=== PATIENT | male | born 1935 | race Caucasian/White ===

== ENCOUNTER 2016-12-21 18:48 | Inpatient (IN) ==
[2016-12-21] MEDS ORDERED: Aspirin 81 MG TAB.CHEW ONE (18:59)
[2016-12-21] MEDS ORDERED: *HR* Ticagrelor 90 MG TABLET ONE (18:59)
[2016-12-21] MEDS ORDERED: *HR* Heparin 5,000 UNIT/ML VIAL ONE (19:00)
[2016-12-21] MEDS ORDERED: *HR* Ticagrelor 90 MG TABLET PO ONE (19:01)
[2016-12-21] MEDS ORDERED: *HR* Heparin 5,000 UNIT/ML VIAL IVP ONE (19:01)
[2016-12-21] MEDS ORDERED: Aspirin 81 MG TAB.CHEW PO ONE (19:03)
--- NOTE | 2016-12-21 19:08 | Emergency Department Note ---
Disposition Clinical Impression: Epigastric discomfort, Chest discomfort STEMI (ST elevation myocardial infarction) Qualifiers: Involved coronary artery: other coronary artery Qualified Code(s): I21.29 - ST elevation (STEMI) myocardial infarction involving other sites Disposition: Admitted As Inpatient Condition: Fair General Adult HPI - General Chief complaint: ED Chest Pain Stated complaint: Chest pain Time Seen by Provider: 12/21/16 19:00 Source: patient, family Mode of arrival: ambulatory Limitations: no limitations Nursing Notes Reviewed: Yes Vital Signs Reviewed: Yes - History of Present Illness HPI Narrative: 81-year-old male who reports he has had approximately 3 days of epigastric and lower substernal chest discomfort. He describes it as a pressure. He has a past medical history and significant for CABG approximately 5 years ago and a left heart catheter with stent placement approximately 3 years ago. He takes aspirin, metoprolol, and metformin. Past medical history of diabetes, hypertension, hyperlipidemia, coronary disease, and bovine valve replacement. He is not on other anticoagulants. He denies any fever. He has had some nausea but no vomiting. Denies dyspnea. Radiation: non-radiation Pain Severity: moderate Pain Scale: 5 Consistency: constant Improves with: nothing Worsens with: nothing Associated symptoms: Reports: denies other symptoms - Related Data Allergies Allergy/AdvReac Type Severity Reaction Status Date / Time No Known Allergies Allergy Verified 12/21/16 18:53 All systems ED: reviewed and negative except as stated. Constitutional: Denies: fever Eyes: Denies: vision change ENT ED: Denies: throat pain Cardiovascular: Reports: chest pain Respiratory: Denies: cough Gastrointestinal: Reports: abdominal pain (epgastric) Musculoskeletal: Denies: back pain Integumentary: Denies: rash Neurological: Denies: headache Past Medical History - Past Medical History Medical history: Reports: coronary artery disease, diabetes, GERD, hyperlipidemia, hypertension, myocardial infarction - Social History Smoking Status: Former smoker Alcohol use: Reports: none Drug use: Reports: none Physical Exam - General Limitations: no limitations General appearance: alert, in no apparent distress - Head Head exam: atraumatic - Eye Eye exam: Present: normal appearance, PERRL - ENT ENT exam: normal exam, normal oropharynx - Neck Neck exam: Present: normal inspection - Chest Chest inspection: Present: normal inspection - Respiratory Respiratory exam: Present: normal lung sounds bilaterally. Absent: respiratory distress - Cardiovascular Cardiovascular exam: Present: regular rate, normal rhythm - Abdominal Exam Abdominal exam: Present: soft, Non-Tender - Extremities Exam Extremities exam: Present: normal inspection - Back Exam Back exam: Present: normal inspection - Neurological Exam Neurological exam: Present: alert, oriented X3 - Psychiatric Psychiatric exam: Present: normal affect, normal mood - Skin Skin exam: Present: warm, dry Course Course Narrative: On initial EKG STEMI alert was called due to ST elevation in V1 through V5. No T-wave inversions or inferior involvement. I spoke with Dr. Mittal the interventionalists who recommended I give a heparin bolus and Brilinta. I have also given aspirin. His blood pressure was 200 systolic so I did go ahead and order sublingual nitroglycerin. His discomfort is decreasing. Vital signs are otherwise stable. Vital Signs Temperature 98.6 F 12/21/16 18:54 Pulse Rate 95 12/21/16 18:54 Respiratory Rate 18 12/21/16 18:54 Blood Pressure 183/89 12/21/16 18:54 O2 Sat by Pulse Oximetry 97 12/21/16 18:54 Temperature 98.6 F 12/21/16 18:54 Pulse Rate 60 12/21/16 19:27 Respiratory Rate 16 12/21/16 19:34 Blood Pressure 149/76 12/21/16 19:34 O2 Sat by Pulse Oximetry 97 12/21/16 19:27 Oxygen Delivery Oxygen Delivery Nasal Cannula Medical Decision Making - Medical Records Medical records reviewed: Yes I reviewed the patient's medical records. - Lab Data Lab results reviewed: Yes I reviewed the patient's lab results. Result diagrams: 12/21/16 19:00 12/21/16 19:00 Lab Results 12/21/16 12/21/16 12/21/16 Range/Units 19:00 19:00 19:00 WBC 7.9 (4.3-11.1) K/mcL RBC 4.87 (4.19-5.50) M/mcL Hgb 14.1 (12.9-16.9) g/dL Hct 42.5 (37.5-50.1) % MCV 87.3 (83.0-100.0) fL MCH 29.0 (28.0-33.3) pg MCHC 33.2 (31.6-35.5) g/dL RDW 13.4 (11.5-14.5) % Plt Count 207 (140-400) K/mcL MPV 10.4 (9.4-12.4) fL Immature Gran % 0.4 (0-4) % Seg Neutrophils % 57.9 % Lymphocytes % 26.2 % Monocytes % 10.3 % Eosinophils % 4.4 % Basophils % 0.8 % Neutrophils # 4.6 (1.6-8.9) K/mcL Lymphocytes # 2.1 (0.6-4.6) K/mcL Monocytes # 0.8 (0.0-1.3) K/mcL Eosinophils # 0.4 (0.0-0.6) K/mcL Basophils # 0.1 (0.0-0.2) K/mcL PT 11.9 (9.4-12.1) Seconds INR 1.1 APTT 27.1 (26.0-36.0) Seconds Sodium 142 (136-145) mEq/L Potassium 4.7 H (3.5-4.5) mEq/L Chloride 104 (98-109) mEq/L Carbon Dioxide 27 (19-29) mEq/L BUN 16 (8-26) mg/dL Creatinine 1.47 H (0.72-1.25) mg/dL Est GFR ( Amer) 56 L (> 60) Est GFR (Non-Af Amer) 46 L (> 60) BUN/Creatinine Ratio 11 (6-26) Glucose 158 H (70-99) mg/dL Calculated Osmolality 298 (280-300) Calcium 9.1 (8.6-10.8) mg/dL Magnesium 1.5 L (1.6-2.6) mg/dL Troponin I (0-0.03) ng/mL 12/21/16 Range/Units 19:00 WBC (4.3-11.1) K/mcL RBC (4.19-5.50) M/mcL Hgb (12.9-16.9) g/dL Hct (37.5-50.1) % MCV (83.0-100.0) fL MCH (28.0-33.3) pg MCHC (31.6-35.5) g/dL RDW (11.5-14.5) % Plt Count (140-400) K/mcL MPV (9.4-12.4) fL Immature Gran % (0-4) % Seg Neutrophils % % Lymphocytes % % Monocytes % % Eosinophils % % Basophils % % Neutrophils # (1.6-8.9) K/mcL Lymphocytes # (0.6-4.6) K/mcL Monocytes # (0.0-1.3) K/mcL Eosinophils # (0.0-0.6) K/mcL Basophils # (0.0-0.2) K/mcL PT (9.4-12.1) Seconds INR APTT (26.0-36.0) Seconds Sodium (136-145) mEq/L Potassium (3.5-4.5) mEq/L Chloride (98-109) mEq/L Carbon Dioxide (19-29) mEq/L BUN (8-26) mg/dL Creatinine (0.72-1.25) mg/dL Est GFR ( Amer) (> 60) Est GFR (Non-Af Amer) (> 60) BUN/Creatinine Ratio (6-26) Glucose (70-99) mg/dL Calculated Osmolality (280-300) Calcium (8.6-10.8) mg/dL Magnesium (1.6-2.6) mg/dL Troponin I 1.29 H* (0-0.03) ng/mL - Radiology Data Radiology results reviewed: Yes I reviewed the patient's radiology results. - EKG Data EKG #1 EKG attestation: Yes I reviewed and interpreted this EKG. EKG shows normal: sinus rhythm Rate: normal Rhythm: NSR [place]/QRS: normal ST segment elevation in: v1, v2, v3, v4, v5 Interpretation: acute FL Critical Care Time Critical Care Time: Yes Total Critical Care Time: 35 Attestation: Critical care performed: Time is exclusive of separately billable procedures. Time includes: direct patient care, patient reassessment, coordination of patient care, interpretation of data (laboratory data, radiology data, and respiratory data), review of patient's medical records, medical consultation and documentation of patient care. Procedures included in critical care time: Procedures excluded from critical care time: Attestation Statement - Attestation Attestation: IRu MD, personally performed a history and physical exam of the patient and discussed their management with the resident. I reviewed the resident's note and agree with the documented findings, medical decision making , and plan of care. 81-year-old male presents to the emergency department complaining of some lower substernal and epigastric area pain started 2 days prior to arrival. Some mild shortness of breath but patient states he is short of breath all the time. Some mild nausea but no vomiting. No diaphoresis. On examination patient is a well-developed well-nourished well-appearing elderly male in no acute distress. He is alert and oriented 3. There is no cyanosis or diaphoresis. Breath sounds clear and equal bilaterally. Heart regular rate and rhythm. Abdomen soft and nontender with normal bowel sounds. No pedal edema. EKG shows a STEMI with acute ST elevation in V2 V3 and V4. STEMI alert was called. Dr. Platt discussed with the tagman, Dr. Mittal, and patient is being taken from the emergency department to the [employer] [facility] for interventional cardiac catheter. He received aspirin, Brilenta, and heparin in the emergency department.
[2016-12-21 19:11] LABS: Hematocrit 42.5 % (37.5-50.1); Hemoglobin 14.1 g/dL (12.9-16.9); Immature Granulocytes % 0.4 % (0-4); Lymphocytes % 26.2 %; Mean Corpuscular HGB Conc 33.2 g/dL (31.6-35.5); Mean Corpuscular Volume 87.3 fL (83.0-100.0); Mean Platelet Volume 10.4 fL (9.4-12.4); Monocytes % 10.3 %; Platelet Count 207 K/mcL (140-400); Red Blood Count 4.87 M/mcL (4.19-5.50); Red Cell Distribution Width 13.4 % (11.5-14.5); Segmented Neutrophils % 57.9 %
[2016-12-21] MEDS: Nitroglycerin 0.4 MG TAB.SUBL SL PRN ×2 (19:11→21:56)
[2016-12-21 19:12] LABS: Basophils # 0.1 K/mcL (0.0-0.2); Basophils % 0.8 %; Eosinophils # 0.4 K/mcL (0.0-0.6); Eosinophils % 4.4 %; Lymphocytes # 2.1 K/mcL (0.6-4.6); Monocytes # 0.8 K/mcL (0.0-1.3); Neutrophils # 4.6 K/mcL (1.6-8.9)
[2016-12-21 19:19] LABS: INR 1.1; Prothrombin Time 11.9 Seconds (9.4-12.1)
[2016-12-21] MEDS ORDERED: *HR* Heparin 10,000 UNIT/10 ML VIAL ONE (19:20)
[2016-12-21] MEDS ORDERED: 0.9 % Sodium Chloride 1,000 ML ONE ×2 (19:20→19:35)
[2016-12-21] MEDS ORDERED: Heparin 1,000 UNITS/500 mL NS 500 ML ONE (19:20)
[2016-12-21] MEDS ORDERED: Nitroglycerin 1,000 MCG/10 ML VIAL IV ONE (19:21)
[2016-12-21 19:22] LABS: Activated Partial Thrombo Time 27.1 Seconds (26.0-36.0)
[2016-12-21 19:24] LABS: Calcium 9.1 mg/dL (8.6-10.8); Magnesium 1.5 mg/dL (1.6-2.6); Potassium 4.7 mEq/L (3.5-4.5)
[2016-12-21] MEDS ORDERED: *HR* Midazolam HCl 5 MG/5 ML VIAL IVP ONE (19:34)
[2016-12-21] MEDS ORDERED: *HR* FentaNYL (PF) 250 MCG/5 ML VIAL ONE (19:35)
[2016-12-21] MEDS ORDERED: Nitroglycerin Spray 4.9 GM BOTTLE ONE (19:39)
[2016-12-21] MEDS ORDERED: Nitroglycerin 25 MG/250 ML INFUS..BTL IVC ONE (19:39)
[2016-12-21] MEDS ORDERED: *HR* Adenosine 6 MG/2 ML VIAL IVP ONE (20:12)
[2016-12-21] MEDS ORDERED: Ondansetron 4 MG/2 ML VIAL IVP PRN (20:20)
[2016-12-21] MEDS ORDERED: 0.9 % Sodium Chloride 1,000 ML IVC SCH (20:30)
--- NOTE | 2016-12-21 20:32 | Invasive Diagnostic Lab Proc ---
Name: Sam Handy Date of Study: 12/21/2016 Date: 1935 Ht: 70.0in Medical Record#: [id number] Age: 81 Wt: 190.70lb Gender: Male BSA: 2.05 Order #: [id number] BMI: 27.36 Physicians Procedure Physician: Jen Mittal MD, FACC Referring MD: Christopher Bradley DO Referring MD: Staff Name Position Time In Page Keith RT (R) Scrub 07:41 PM Michele Guzman RN Patient Financial Coordinator 07:41 PM Linda North RN Monitor 07:41 PM Indications Indication STEMI Procedures Performed Procedure L HRT ARTERY/VENTRICLE ANGIO PRQ CARD REVASC WA 1 VSL Pre-Procedure Checklist Informed consent is complete signed and on chart. H\\T\\P is on chart. ID band is on and ID verified with patient. Pt not NPO for procedure and MD aware. The procedure was described for the patient and questions were answered. Blood Pressure: 176/82 ECG is on chart. Rhythm: Sinus Bradycardia Plan of Care Patient will tolerate the procedure without complications. Adequate level of comfort will be maintained. Hemodynamics will remain stable Patient will recover from procedure without complications. Respiratory function will be maintained. Cardiac rhythm will remain stable. Patient temperature will be maintained. Patient and/or family have verbalized understanding of the procedure. Patient Education Intravenous Access Time IV Size Location DC'd Fluid/Drip Rate Units RN 07:31 PM 18g 1 1/4" Patent On Arrival Rt Antecubital Michele Guzman RN 07:32 PM 18g 1 1/4" Patent On Arrival Lt Michele Banuelos RN Allergies No Known Allergies Vital Signs Time BP (mmHg) HR (bpm) O2 Sat. RR (bpm) LOC 07:31 PM 183 / 89 95 97 % 16 5 = Fully awake and oriented or at pre-proc level 07:42 PM / % 5 = Fully awake and oriented or at pre-proc level 07:43 PM / % 5 = Fully awake and oriented or at pre-proc level 07:47 PM / % 5 = Fully awake and oriented or at pre-proc level 07:52 PM / % 5 = Fully awake and oriented or at pre-proc level 07:40 PM 176 / 82 66 100 % 30 07:44 PM 138 / 70 63 98 % 14 07:52 PM 146 / 82 68 98 % 15 07:57 PM 142 / 67 62 98 % 19 08:01 PM 151 / 76 62 99 % 22 08:07 PM 175 / 86 69 100 % 17 Procedural Medications Time Medication Dose Units Method Given By 07:40 PM Oxygen 2 L/min nasal cannula Michele Guzman RN 07:40 PM Nitroglycerin 0.4 mcg Sublingual Michele Guzman RN 07:41 PM Versed 1 mg Intravenous Michele Guzman RN 07:41 PM Fentanyl 25 mcg Intravenous Michele Guzman RN 07:42 PM Lidocaine 2% 15 ml Subcutaneous Jen Mittal MD, FAC 07:54 PM Nitroglycerin 200 mcg Intracoronary Jen Mittal MD, FAC 07:54 PM Nitroglycerin 200 mcg Intracoronary Jen Mittal MD, FAC 07:54 PM Heparin 2000 units flush bowl 07:58 PM Adenosine 360 mcg Intracoronary Jen Mittal MD, FAC 08:04 PM Reopro 10.9 ml Intravenous Michele Guzman RN ASA Classification: Emergent Procedure: ASA score is assumed Jayjay Score Preprocedure Postprocedure Activity 2- Moves 4 extremities sustained head lift Activity 2- Moves 4 extremities sustained head lift Circulation 2- SBP +/= 20 points of pre-anesthetic level Circulation 2- SBP +/= 20 points of pre-anesthetic level Consciousness 2- Awake and alert oriented x 3 Consciousness 2- Awake and alert oriented x 3 O2 Saturation 2- Able to maintain O2 satruation of 92% on room air O2 Saturation 2- Able to maintain O2 satruation of 92% on room air Respiratory 2- Able to deep breathe and cough well Respiratory 2- Able to deep breathe and cough well Total Score 10 Total Score 10 Contrast Agent: Isovue Diagnostic Contrast: 149 ml Total Contrast: 149 ml Fluoro Dose: 551 mGy Activated Clotting Time Time Seconds to Clot 07:53 PM 400 07:58 PM 376 Procedure Log Time Note Enter By 07:36 PM Vitals capture started with the following parameters, Patient=Adult, Interval=5 min, Initial Qergkwry=703 mmHg, Deflation Rate=5 mmHg, Cuff placed on Right Arm 07:38 PM Vitals capture stopped. 07:38 PM Vitals capture started with the following parameters, Patient=Adult, Interval=5 min, Initial Dzopbbes=061 mmHg, Deflation Rate=5 mmHg, Cuff placed on Right Arm 07:40 PM Time out performed according to hospital policy ejohnson 07:40 PM HR=66 bpm, GVYK=538/82 mmhg, YxE0=860.0 %, Resp=30 B/min, Comment=SB 07:40 PM Time: 19:40 Oxygen on at 2 L/min per nasal cannula by Michele Guzman RN ejohnson 07:41 PM Time: 19:40 Nitroglycerin 0.4 mcg Sublingual Given by Michele Guzman RN ejohnson 07:41 PM Pt arrived to oven lab[facility] 2 at 19:41 ejohnson 07:41 PM Page Keith RT (R) Position: Scrub Time in: : ejohnson 07:41 PM Michele Guzman RN Position: Patient Financial Coordinator Time in: : ejohnson 07:41 PM Linda North RN Position: Monitor Time in: 19:41 ejohnson 07:41 PM Patient charges- Angio tray pack, Navilyst 3mm J, Pulse Oximetry and ACIST tubing and transducer ejohnson 07:41 PM Case Delayed No ejohnson 07:41 PM Time: 19:41 Versed 1 mg Intravenous Given by Michele Guzman RN ejohnson 07:41 PM Time: 19:41 Fentanyl 25 mcg Intravenous Given by Michele Guzman RN ejohnson 07:41 PM Meet and greet completed ejohnson 07:41 PM Sign in performed according to hospital policy. ejohnson 07:41 PM Procedure start 19:41 ejohnson 07:42 PM Time: 19:42 15 ml Lidocaine 2% to right groin Subcutaneous Given by Jen Mittal MD, FAC ejohnson 07:42 PM Access obtained by percutaneous puncture. 6Fr 10cm Terumo [place] sheath placed in right Femoral artery. [id number] ejohnson 07:42 PM 5Fr FL 4 catheter inserted over the wire DNC ejohnson 07:42 PM Time: 19:42 Patient comfortable and pain free: Yes ejohnson 07:43 PM Time: 19:42LOC: 5 = Fully awake and oriented or at pre-proc level ejohnson 07:43 PM Recorded Pressure: Ao, HR=65, Condition=Condition 1 (Aorta) Ao 114/50/78 07:44 PM HR=63 bpm, SYUX=879/70 mmhg, SpO2=98.0 %, Resp=14 B/min, Comment=SB 07:44 PM Catheter removed ejohnson 07:45 PM 6Fr XB LAD 3.5 [place] Bright-Tip guide catheter was used to cannulate the PCI vessel successfully. reused? No ejohnson 07:45 PM Inflation device was opened. ejohnson 07:45 PM Lesion found in Mid LAD. Pre Stenosis: 100 Pre THOMAS Flow: 0: No Flow/No perfusion ejohnson 07:45 PM Mid/Distal Left Anterior Descending Coronary Artery and diagonal branches with 100% stenosis. ejohnson 07:46 PM .014 Prowater 180cm guide wire across target lesion- successful. reused? No ejohnson 07:47 PM Recorded Pressure: Ao, HR=63, Condition=Condition 1 (Aorta) Ao 101/39/65 07:47 PM Time: 19:42 Patient comfortable and pain free: Yes ejohnson 07:47 PM Time: 19:43LOC: 5 = Fully awake and oriented or at pre-proc level ejohnson 07:48 PM 2.0 mm x 15 mm Emerge Monorail balloon across target lesion- successful. reused? No ejohnson 07:48 PM Balloon inflated @ 10 nilo for 20 seconds ejohnson 07:49 PM Balloon inflated @ 12 nilo for 20 seconds ejohnson 07:50 PM Vitals capture stopped. 07:51 PM Balloon catheter removed intact. ejohnson 07:51 PM Vitals capture started with the following parameters, Patient=Adult, Interval=5 min, Initial Xspxxxkq=137 mmHg, Deflation Rate=5 mmHg, Cuff placed on Right Arm 07:51 PM 2.5mm x 38mm Synergy drug-eluting stent across target lesion- successful Lot #[id number] ejohnson 07:52 PM HR=68 bpm, MNRC=377/82 mmhg, SpO2=98 %, Resp=15 B/min 07:52 PM Time: 19:47 Patient comfortable and pain free: Yes ejohnson 07:52 PM Time: 19:47LOC: 5 = Fully awake and oriented or at pre-proc level ejohnson 07:52 PM Stent deployed @ 12 nilo for 30 seconds ejohnson 07:53 PM At 19:53 the ACT was 400 seconds. ejohnson 07:53 PM Stent delivery system removed intact. ejohnson 07:54 PM Time: 19:54 Nitroglycerin 200 mcg Intracoronary Given by Jen Mittal MD, [facility] ejohnson 07:54 PM Time: 19:54 Nitroglycerin 200 mcg Intracoronary Given by Jen Mittal MD, [facility] ejohnson 07:55 PM Time: 19:54 Heparin 2000 units flush bowl Given by ejohnson 07:56 PM Guide wire removed intact. ejohnson 07:57 PM HR=62 bpm, ZIFA=238/67 mmhg, SpO2=98.0 %, Resp=19 B/min, Comment=SB 07:58 PM At 19:58 the ACT was 376 seconds. ejohnson 07:59 PM Recorded Pressure: Ao, HR=53, Condition=Condition 1 (Aorta) Ao 115/49/75 07:59 PM Time: 19:58 Adenosine 360 mcg Intracoronary Given by Jen Mittal MD, [facility] ejohnson 08:00 PM Guide catheter removed intact. ejohnson 08:01 PM Pressure channel 1 zeroed. 08:01 PM HR=62 bpm, ISWL=013/76 mmhg, SpO2=99.0 %, Resp=22 B/min, Comment=SB 08:02 PM Recorded Pressure: LV, HR=71, Condition=Condition 1 (Left Ventricle) LV 147/8/11 08:02 PM Recorded Pressure: LV, Ao, HR=69, Condition=Condition 1 (Left Ventricle) LV 138/5/10, (Aorta) Ao 142/65/96 08:02 PM Recorded Pressure: Ao, HR=50, Condition=Condition 1 (Aorta) Ao 127/58/87 08:02 PM 5Fr FR 4 catheter inserted over the wire [facility] ejohnson 08:02 PM Catheter selectively placed in left ventricle ejohnson 08:03 PM RCA angiography performed in multiple views. ejohnson 08:03 PM Catheter removed ejohnson 08:03 PM Bolus angiogram of right Femoral complete: 2 ml/sec for a total of 4 mls ejohnson 08:03 PM Procedure completed at 20:03 ejohnson 08:04 PM Sign out completed: Radiation Dose 550.64 mGy Fluoro Time: 3.9 Isovue 370 - 200ml contrast 149 ml given by Jen Mittal MD, [facility]. Complications: NoneCardiac Rehab Consult needed: YesConfirmed administered medications: Yes ejohnson 08:04 PM Isovue 370 - 200ml,1 Bottle(s) used. ejohnson 08:04 PM Time: 20:04 Reopro 10.9 ml Intravenous Given by Michele Guzman RN ejohnson 08:06 PM Sheath left in place to be pulled on floor/holding area ejohnson 08:06 PM Post ECG NSR ejohnson 08:06 PM Post Blood Pressure 151/76 ejohnson 08:06 PM 20:06 Post Pulses Bilateral DP \\T\\ PT 2+ ejohnson 08:07 PM Information taught PCI ejohnson 08:07 PM Education needs Plan of Care and Responsibilities of Patient in Care ejohnson 08:07 PM Learning barriers :None ejohnson 08:07 PM Education Methods Verbal ejohnson 08:07 PM Education evaluation Able to repeat information ejohnson 08:07 PM Site status No bleeding/hematoma - Rt Groin as reported by Page Keith RT (R) at 20:07 ejohnson 08:07 PM Opsite applied ejohnson 08:07 PM Plavix, Effient or Brilinta given Yes, in ER ejohnson 08:07 PM Time: 19:52LOC: 5 = Fully awake and oriented or at pre-proc level ejohnson 08:07 PM Time: 19:52 Patient comfortable and pain free: Yes ejohnson 08:07 PM HR=69 bpm, CZMB=692/86 mmhg, OjC5=024.0 %, Resp=17 B/min, Comment=SB 08:07 PM Family placed in consult room. ejohnson 08:07 PM Complications: None ejohnson 08:12 PM Lesion found in Proximal RCA. Pre Stenosis: 40 Pre THOMAS Flow: 3: Complete and Brisk Flow/Perfusion ejohnson 08:12 PM Coronary Dominance: Left ejohnson 08:13 PM Lesion found in Mid RCA. Pre Stenosis: 30 Pre THOMAS Flow: 3: Complete and Brisk Flow/Perfusion ejohnson 08:13 PM Lesion found in LMCA. Pre Stenosis: 30 Pre THOMAS Flow: 3: Complete and Brisk Flow/Perfusion ejohnson 08:14 PM Lesion found in Proximal LAD. Pre Stenosis: 50 Pre THOMAS Flow: 3: Complete and Brisk Flow/Perfusion ejohnson 08:14 PM Lesion found in 1st Diagonal. Pre Stenosis: 80 Pre THOMAS Flow: 3: Complete and Brisk Flow/Perfusion ejohnson 08:14 PM Lesion found in 2nd Diagonal. Pre Stenosis: 80 Pre THOMAS Flow: 3: Complete and Brisk Flow/Perfusion ejohnson 08:14 PM Lesion found in Mid Circumflex. Pre Stenosis: 40 Pre THOMAS Flow: 3: Complete and Brisk Flow/Perfusion ejohnson 08:14 PM Lesion found in 1st Marginal. Pre Stenosis: 99 Pre THOMAS Flow: 3: Complete and Brisk Flow/Perfusion ejohnson 08:14 PM Lesion found in Ramus. Pre Stenosis: 40 Pre THOMAS Flow: 3: Complete and Brisk Flow/Perfusion ejohnson 08:15 PM Left Main Coronary Artery with 30% stenosis ejohnson 08:17 PM Right Coronary, Right Posterior Descending Arteries with Right Posterolateral and Acute Marginal branches with 40 % stenosis. ejohnson 08:18 PM Proximal Left Anterior Descending Coronary Artery with 50% stenosis. ejohnson 08:18 PM Circumflex, Obtuse Marginal, Left Posterior Descending, and Left Posterolateral Coronary Arteries with 99 % stenosis. ejohnson 08:18 PM Ramus with 40% stenosis. ejohnson 08:20 PM Report given to Rio CARVALHO Pt taken to ICU Room #8. 20:20 ejohnson 08:24 PM Patient out of room: 20:22 ejohnson Complications Complication None Hemodynamics Pressures Site Systolic/A Wave Diastolic/V Wave Mean AO 114 50 78 AO 101 39 65 AO 115 49 75 LV 147 8 11 LV 138 5 10 AO 142 65 96 AO 127 58 87 Post Procedure Information Blood Pressure: 151/76 mmHg Rhythm: NSR Post procedural instructions were given Site Checks Time Location Status Staff Sheath In? Note 08:07 PM Rt Groin No bleeding/hematoma Page Keith RT (R) Pulses Time Site Pre-Procedure Post-Procedure Note 8:06:00 PM Bilateral DP \\T\\ PT 2+ 12/21/2016 7:30:00 PM Bilateral DP \\T\\ PT 2+ Updated by Linda North RN on 12/21/2016 8:26:04 PM Linda North RN electronically signed on 12/21/2016 8:26:25 PM with status of Final
[2016-12-21] MEDS ORDERED: Magnesium Sulfate 2 GM in D5% in Water 100 ML IVPB ONE (20:37)
[2016-12-21] MEDS ORDERED: *HR* Dextrose 50 % in Water (Syg) 50 ML SYRINGE IVP PRN (20:38)
[2016-12-21] MEDS ORDERED: D5% in Water 1,000 ML IV PRN (20:38)
[2016-12-21] MEDS ORDERED: Dextrose Gel 15 GM PO PRN ×2 (20:38)
--- NOTE | 2016-12-21 20:46 | Cardiology History & Physical ---
Date of Encounter: 12/21/16 Time of Encounter: 19:30 Assessment and Plan (1) STEMI (ST elevation myocardial infarction) Current Visit: Yes Status: Acute Pt is currently experiencing acute anterior STEMI. Will proceed immediately to cardiac catheterization lab for emergent cath and probable PCI. All risks/ benefits of procedure discussed with pt. Agreeable to proceed. The assessment and plan as outlined above was discussed with the patient and/or family members who expressed understanding and agreement. All questions were answered. Qualifiers: Involved coronary artery: LAD coronary artery Qualified Code(s): I21.02 - ST elevation (STEMI) myocardial infarction involving left anterior descending coronary artery (2) Coronary artery disease Current Visit: Yes Status: Chronic Qualifiers: Coronary Disease-Associated Artery/Lesion type: [place] artery [place] vs. transplanted heart: [place] heart Associated angina: with unstable angina Qualified Code(s): I25.110 - Atherosclerotic heart disease of [place] coronary artery with unstable angina pectoris (3) S/P aortic valve replacement with bioprosthetic valve Current Visit: No Status: Chronic Will assess EF and bioprosthetic AVR by echo. (4) Diabetes mellitus Current Visit: No Status: Chronic Qualifiers: Diabetes mellitus type: type 2 Diabetes mellitus complication status: with unspecified complications Diabetes mellitus senior living insulin use: without senior living use Qualified Code(s): E11.8 - Type 2 diabetes mellitus with unspecified complications (5) Hyperlipidemia Current Visit: No Status: Chronic Statin therapy. Qualifiers: Hyperlipidemia type: unspecified Qualified Code(s): E78.5 - Hyperlipidemia , unspecified (6) Hypertension Current Visit: Yes Status: Acute Qualifiers: Hypertension type: essential hypertension Qualified Code(s): I10 - Essential (primary) hypertension History of Present Illness Chief complaint: epigastric pressure HPI: Mr. Handy is a 81 year old male with hx of CAD s/p PTCA, s/p bioprosthetic AVR , HTN, hyperlipidemia, DM presents to [facility] c/o epigastric discomfort. Pt states that has had on/off epigastric discomfort for past week, but over past 3 days has been fairly constant. Denies radiation. Denies associated SOB , nausea, diaphoresis. Presented today at urging of girlfriend and his son. Similar to discomfort experienced with nonSTEMI prior to PTCA in 2011. EKG on arrival to [place] consistent with anterior STEMI. Has known hx of CAD- had PTCA of OM vessel in 2012 prior to elective AVR in 2012 at [facility] with #21 Carr pericardial bioprosthesis. OM vessel was felt to be not graftable at time of surgery. Has not had any cardiac testing/evaluation recently. Past Med Surg Social Fam HX - Past Medical History Source: patient Medical history: coronary artery disease, diabetes, GERD, hyperlipidemia, hypertension, myocardial infarction, valvular heart disease, other (esophageal strictures s/p dilatation) - Past Surgical History Surgical History: angioplasty/stent (PTCA OM1 2011), heart valve replacement ( bioprosthetic AVR (#21 Carr pericardial)) - Social History Smoking Status: Former smoker Alcohol use: none Drug use: none - Family History Father Living Status: Cause of : heart disease Mother Living Status: Age at : 99 Medications and Allergies Aspirin 81 mg PO DAILY 12/21/16 [History] Flonase 50 mcg IH DAILY 12/21/16 [History] Metformin HCl [Metformin HCl ER] 1,000 mg PO BID 12/21/16 [History] Metoprolol Tartrate 25 mg PO BID 12/21/16 [History] Omeprazole [PriLOSEC] 20 mg PO DAILY 12/21/16 [History] Simvastatin [Zocor] 40 mg PO HS 12/21/16 [History] Allergies No Known Allergies Allergy (Verified 12/21/16 18:53) ROS unobtainable: other All Systems Review: A 10-system review of systems was performed and is negative for pertinent findings except as documented above in the HPI. - Cardiovascular Cardiovascular: as per HPI (emergency) Physical Examination Vital Signs, Last 4 Hours Temp Pulse Resp BP Pulse Ox 12/21/16 20:27 98 F 61 16 149/72 100 12/21/16 19:34 16 149/76 12/21/16 19:27 60 16 149/76 97 12/21/16 19:21 68 16 139/73 96 12/21/16 19:19 94 L General: Conversant, Other (mild distress) HEENT: Atraumatic, Normocephaly, Mucus Membranes Moist Neck: No JVD, Normal carotid pulses Cardiac: Reg Rate and Rhythm, Normal S1 and S2, Other (grade 2/6 systolic m LSB) Lungs: Normal Breath Sounds, No Wheeze, Rales, Rhonchi Neuro: Alert and responsive, No focal deficits noted Abdomen: Soft, Non-Tender Skin: No rashes noted on visualized skin, Other (well healed midline sternotomy incision) Musculoskeletal: No Chest Wall Tenderness Extremities: No Clubbing, No Cyanosis, No Edema, Normal Pulses Results 12/21/16 19:00 12/21/16 19:00 - EKG Interpretation EKG results cardiology: personally reviewed (NSR with anterior STEMI) - VTE Reasons for not Prescribing Prophylaxis: Not indicated-Anticoagulated or INR therapeutic
--- NOTE | 2016-12-21 21:17 | Invasive Diagnostic Lab ---
Name: Sam Handy Date of Study: 12/21/2016 Date: 1935 Ht: 177.8 cm /70.0 in Medical Record#: [id number] Age: 81 Wt: 86.5 kg / 190.70 lb Account/Order#: [id number] Gender: Male BSA: 2.05 Order #: [id number] Fluoro Dose: 551 mGy BMI: 27.36 Procedure Physician: Jen Mittal MD, [facility] Referring MD: Christopher Bradley DO Referring MD: Procedures Performed: LEFT HEART CATH PCI of Acute [place] Indications: STEMI Impressions: Double vessel coronary artery disease. S/P bioprosthetic AVR Patient had successful PTCA/Drug-Eluting Stent placement in the mid LAD. Recommendations: DAPT for one year minimum uninterrupted. Optimal medical therapy of patient's disease. Aggressive risk factor modification. History/Risk Factors: PCI approx. 3 yrs ago DM HTN Bovine valve replacement, Aortic Hyperlipidemia GERD Procedure Access obtained in the right Femoral artery by percutaneous puncture Patient had successful PTCA/Drug-Eluting Stent placement in the mid LAD. Complications: None Contrast: Isovue 149ml Hemodynamics: Pressures Site Systolic/ A Wave Diastolic/ V Wave End Diastolic/ Mean HR AO 114 50 78 65 AO 101 39 65 63 AO 115 49 75 53 LV 147 8 11 71 LV 138 5 10 68 AO 142 65 96 72 AO 127 58 87 50 Coronary Dominance: Left Lesion Findings/Interventions * Left Main Coronary Artery There is a 30% stenosis in the LMCA. The lesion has a THOMAS flow of 3. * Left Anterior Descending There is a 50% stenosis in the Proximal LAD. The lesion has a THOMAS flow of 3. There is a 100% stenosis in the Mid LAD with thrombus. The lesion has a THOMAS flow of 0. An intervention was performed on the Mid LAD with a final stenosis of 0%. There were no lesion complications. The final THOMAS flow was 3. There is a 80% stenosis in the 1st Diagonal- small vessel. The lesion has a THOMAS flow of 3. * Circumflex There is a 40% stenosis in the Mid Circumflex. The lesion has a THOMAS flow of 3. There is a 99% stenosis in the 1st Marginal- small, subtotally occluded vessel. Not amenable to revascularization. * Ramus There is a 40% stenosis in the Ramus. The lesion has a THOMAS flow of 3. * Right Coronary Artery- nondominant There is a 40% stenosis in the Proximal RCA. The lesion has a THOMAS flow of 3. There is a 30% stenosis in the Mid RCA. The lesion has a THOMAS flow of 3. Interventional Device(s) Vessel Segment Type Name Diameter (mm) Length (mm) Mid LAD balloon Emerge Monorail 2 15 Mid LAD drug-eluting stent Synergy RX 2.5 38 Updated by Linda North RN on 12/21/2016 8:22:19 PM Jen Mittal MD, FACC electronically signed on 12/21/2016 9:13:20 PM with status of Final
[2016-12-22] MEDS: Nitroglycerin 0.4 MG TAB.SUBL SL PRN ×3 (01:10→04:47)
[2016-12-22 06:13] LABS: Basophils # 0.1 K/mcL (0.0-0.2); Basophils % 0.6 %; Eosinophils # 0.2 K/mcL (0.0-0.6); Hematocrit 37.2 % (37.5-50.1); Hemoglobin 12.7 g/dL (12.9-16.9); Immature Granulocytes % 0.2 % (0-4); Lymphocytes # 0.7 K/mcL (0.6-4.6); Lymphocytes % 8.2 %; Mean Corpuscular HGB Conc 34.1 g/dL (31.6-35.5); Mean Corpuscular Hemoglobin 29.3 pg (28.0-33.3); Mean Corpuscular Volume 85.9 fL (83.0-100.0); Mean Platelet Volume 10.6 fL (9.4-12.4); Monocytes # 0.7 K/mcL (0.0-1.3); Monocytes % 8.7 %; Neutrophils # 6.4 K/mcL (1.6-8.9); Platelet Count 178 K/mcL (140-400); Red Blood Count 4.33 M/mcL (4.19-5.50); Red Cell Distribution Width 13.3 % (11.5-14.5); Segmented Neutrophils % 80.3 %
[2016-12-22 06:28] LABS: BUN/Creatinine Ratio 10 (6-26); Blood Urea Nitrogen 13 mg/dL (8-26); Calcium 8.6 mg/dL (8.6-10.8); Carbon Dioxide 21 mEq/L (19-29); Chloride 108 mEq/L (98-109); Chol/HDL Ratio 3.6 (0-4.9); Cholesterol 113 mg/dL (< 200); Glucose 186 mg/dL (70-99); HDL Cholesterol 31 mg/dL (40-59); LDL Cholesterol,Calculated 59 mg/dL (0-99); Magnesium 1.8 mg/dL (1.6-2.6); Osmolality,Calculated 295 (280-300); Potassium 4.7 mEq/L (3.5-4.5); Sodium 140 mEq/L (136-145); Triglycerides 113 mg/dL (< 150); eGFR For African Americans > 60 (> 60); eGFR For Non-African Americans 56 (> 60)
[2016-12-22 06:29] LABS: Hemoglobin A1C 7.7 %
[2016-12-22 06:49] LABS: Thyroid Stimulating Hormone 2.175 mcIU/mL (0.350-4.840)
[2016-12-22] MEDS: Insulin LISPRO 300 UNITS/3 ML VIAL SQ SCH ×3 (07:25→16:39)
[2016-12-22] MEDS: Aspirin 81 MG TAB.CHEW PO SCH (08:19)
[2016-12-22] MEDS: Isosorbide MONOnitrate (24 HR) 30 MG TAB.ER.24H PO SCH (08:19)
--- NOTE | 2016-12-22 09:07 | Cardiology Progress Note ---
Date of Encounter: 12/22/16 Time of Encounter: 08:39 Assessment and Plan (1) STEMI (ST elevation myocardial infarction) Current Visit: Yes Status: Acute Pt presented with acute anterior STEMI. Troponins 1.29, >50. LHC revealed Double vessel CAD, Successful PTCA/CITLALI to mid LAD. He had 80% 1st diagonal stenosis that was small vessel and 99% 1st marginal--small and subtotally occluded not amendable to revascularization. DAPT (ASA and Plavix) uninterrupted x 1 year. Pt verbalizes understanding. Continue BB, Statin, Imdur. Check echo to evaluate structure and function. Plan to transfer out of ICU tomorrow. Anticipate discharge 12/24/16. Qualifiers: Involved coronary artery: LAD coronary artery Qualified Code(s): I21.02 - ST elevation (STEMI) myocardial infarction involving left anterior descending coronary artery (2) Coronary artery disease Current Visit: Yes Status: Chronic Hx of PTCA to OM1. Now s/p STEMI with CITLALI to mid LAD. DAPT x 1 year. Continue ASA, Plavix, Statin, BB, CRISTOBAL-I, Imdur. Qualifiers: Coronary Disease-Associated Artery/Lesion type: [place] artery [place] vs. transplanted heart: [place] heart Associated angina: with unstable angina Qualified Code(s): I25.110 - Atherosclerotic heart disease of [place] coronary artery with unstable angina pectoris (3) Hypertension Current Visit: Yes Status: Acute BP currently not at goal--184/102 this AM. Continue BB Coreg 6.25mg BID and Lisinopril 5mg daily. AM meds just given. Will check BP after meds--if remains elevated will increase antihypertensives as necessary. Qualifiers: Hypertension type: essential hypertension Qualified Code(s): I10 - Essential (primary) hypertension (4) Diabetes mellitus Current Visit: Yes Status: Chronic Sliding scale while inpt. Qualifiers: Diabetes mellitus type: type 2 Diabetes mellitus complication status: with unspecified complications Diabetes mellitus detention insulin use: without long term care pharmacist use Qualified Code(s): E11.8 - Type 2 diabetes mellitus with unspecified complications (5) Hyperlipidemia Current Visit: No Status: Chronic Statin therapy. Qualifiers: Hyperlipidemia type: unspecified Qualified Code(s): E78.5 - Hyperlipidemia , unspecified (6) S/P aortic valve replacement with bioprosthetic valve Current Visit: No Status: Chronic Will assess EF and bioprosthetic AVR by echo. Pt reports AVR was at [facility] in 2011. Prior echo in 2013 showed evidence of borderline aortic stenosis. PV 2.75 m/s, MG 18 mmHg. EF at that time was 60%. Discussion w patient/family: The assessment and plan as outlined above was discussed with the patient and/or family members who expressed understanding and agreement. All questions were answered. Thank you for involving us in the care of your patient. Please call with any questions. I will discuss all the above with Dr. Shah and make changes as necessary. Subjective Principal diagnosis: Anterior STEMI Interval history: Pt s/p anterior STEMI. LHC yesterday evening revealed Double vessel CAD, Successful PTCA/CITLALI to mid LAD. He had 80% 1st diagonal stenosis that was small vessel and 99% 1st marginal--small and subtotally occluded not amendable to revascularization. Pt denies any chest pain or dyspnea overnight, reports feeling well this AM. No acute complaints. Troponin 1.29, >50. Objective Vital Signs, Last 4 Hours Temp Pulse Resp BP Pulse Ox 12/22/16 08:00 63 16 184/102 96 12/22/16 07:46 98.0 F 12/22/16 06:00 63 16 152/71 93 L 12/22/16 05:00 68 16 128/62 93 L General: Conversant, No Apparent Distress HEENT: Atraumatic, Normocephaly, Mucus Membranes Moist Neck: No JVD, Normal carotid pulses Cardiac: Reg Rate and Rhythm, Normal S1 and S2 Lungs: Normal Breath Sounds, No Wheeze, Rales, Rhonchi Neuro: Alert and responsive, No focal deficits noted Abdomen: Soft, Non-Tender Skin: Other (right femoral access site healing well. Mild ecchymosis noted. No bleeding or hematoma.) Musculoskeletal: No Chest Wall Tenderness Extremities: No Clubbing, No Cyanosis, No Edema, Normal Pulses Results 12/22/16 06:04 12/22/16 06:04 Lab Results 12/22/16 12/22/16 12/22/16 06:04 06:04 06:04 WBC 8.0 Hgb 12.7 L Hct 37.2 L Plt Count 178 Sodium 140 Potassium 4.7 H Chloride 108 Carbon Dioxide 21 BUN 13 Creatinine 1.24 Glucose 186 H Calcium 8.6 Magnesium 1.8 Troponin I > 50.00 H* TSH 2.175 Short CBC 12/22/16 12/21/16 Range/Units 06:04 19:00 WBC 8.0 7.9 (4.3-11.1) K/mcL Hgb 12.7 L 14.1 (12.9-16.9) g/dL Hct 37.2 L 42.5 (37.5-50.1) % Plt Count 178 207 (140-400) K/mcL Neutrophils # 6.4 4.6 (1.6-8.9) K/mcL BMP 12/22/16 12/21/16 Range/Units 06:04 19:00 Sodium 140 142 (136-145) mEq/L Potassium 4.7 H 4.7 H (3.5-4.5) mEq/L Chloride 108 104 (98-109) mEq/L Carbon Dioxide 21 27 (19-29) mEq/L BUN 13 16 (8-26) mg/dL Creatinine 1.24 1.47 H (0.72-1.25) mg/dL Glucose 186 H 158 H (70-99) mg/dL Calcium 8.6 9.1 (8.6-10.8) mg/dL Cardiac Enzymes 12/22/16 12/21/16 Range/Units 06:04 19:00 Troponin I > 50.00 H* 1.29 H* (0-0.03) ng/mL Active Medications Acetaminophen (Tylenol) 500 mg PO Q6HR PRN PRN Reason: Mild Pain Stop: 06/22/17 20:21 Aspirin (Aspirin) 81 mg PO DAILY [facility] Stop: 06/23/17 09:01 Last Admin: 12/22/16 08:19 Dose: 81 mg Atorvastatin Calcium (Lipitor) 80 mg PO HS [facility] Stop: 06/22/17 21:01 Last Admin: 12/21/16 21:56 Dose: 80 mg Carvedilol (Coreg) 6.25 mg PO BIDWM [facility] PRN Reason: Protocol Stop: 06/23/17 08:01 Last Admin: 12/22/16 08:19 Dose: 6.25 mg Clopidogrel Bisulfate (Plavix) 75 mg PO DAILY [facility] Stop: 06/23/17 09:01 Last Admin: 12/22/16 08:19 Dose: 75 mg Dextrose/Water (Dextrose 50% (Syg)) 25 ml IVP AD PRN PRN Reason: Hypoglycemia Stop: 06/22/17 20:39 Glucagon (Glucagen) 1 mg IM ONCE PRN PRN Reason: Hypoglycemia Stop: 06/22/17 20:39 Glucose (Gluctose) 15 gm PO ONCE PRN PRN Reason: Hypoglycemia Stop: 06/22/17 20:39 Glucose (Gluctose) 30 gm PO ONCE PRN PRN Reason: Hypoglycemia Stop: 06/22/17 20:39 Dextrose (Dextrose 5%) 1,000 mls @ 100 mls/hr IV CONT PRN PRN Reason: HYPOGLYCEMIA Stop: 06/22/17 20:39 Insulin Human Lispro (Humalog) 0 units SQ TIDAC LAURA PRN Reason: Protocol Stop: 06/23/17 07:31 Last Admin: 12/22/16 07:25 Dose: 4 units Isosorbide Mononitrate (Imdur) 30 mg PO DAILY [facility] Stop: 06/23/17 09:01 Last Admin: 12/22/16 08:19 Dose: 30 mg Lisinopril (Zestril) 5 mg PO DAILY [facility] PRN Reason: Protocol Stop: 06/23/17 09:01 Last Admin: 12/22/16 08:19 Dose: 5 mg Nitroglycerin (Nitroglycerin) 0.4 mg SL Q5MIN PRN PRN Reason: Chest Pain Stop: 06/22/17 19:06 Last Admin: 12/22/16 04:47 Dose: 0.4 mg Ondansetron HCl (Zofran) 4 mg IVP Q8HR PRN PRN Reason: Nausea And Vomiting Stop: 06/22/17 20:21 Last Admin: 12/22/16 05:13 Dose: 4 mg - Imaging and Cardiology Echo: report reviewed (Impressions: LVEF 60%. Normal left ventricular size, thickness and systolic function. There is evidence of mild diastolic dysfunction of the left ventricle. Moderately enlarged left atrial size. Normal right atrial size. RV is not well seen. A biologic valve occupies the aortic position which is suboptimally visualized. There are mildly increased gradients suggesting borderline presence of stenosis. PV 2.75 m/s, MG 18 mmHg. Mild aortic regurgitation. Mild mitral regurgitation. Estimated RVSP was 27 mmHg. No pulmonary hypertension. The IVC is not dilated.) Cardiac cath: report reviewed (Double vessel CAD, Successful PTCA/CITLALI to mid LAD. He had 80% 1st diagonal stenosis that was small vessel and 99% 1st marginal--small and subtotally occluded not amendable to revascularization.) - EKG Interpretation EKG results cardiology: other (12 hour tele AVG HR 70, SR, no significant pauses or arrhythmias noted.) - VTE Reasons for not Prescribing Prophylaxis: Not indicated-Anticoagulated or INR therapeutic Consult Discharge Plan - Plan Referrals: Tyron Bradley DO [Primary Care Provider] -
--- NOTE | 2016-12-22 16:09 | Electrocardiograph Report ---
[facility] Test Date: 2016-12-21 Pat Name: Sam Handy Department: 104 Room: 08 Gender: M [employer]: ALYSSA : 1935 Requested By: Yuval Platt Order Number: [id number] Reading MD: Penny De León Measurements Intervals [place] Rate: 61 P: 16 MI: 158 QRS: 54 QRSD: 94 T: 106 QT: 381 QTc: 383 Interpretive Statements SINUS RHYTHM WITH SINUS ARRHYTHMIA ANTERIOR ST ELEVATION TWI HIGH LATERAL LEADS Electronically Signed On 12-22-16 16:08:19 EST by Penny De León
[2016-12-23] MEDS: Insulin LISPRO 300 UNITS/3 ML VIAL SQ SCH ×3 (07:44→15:45)
[2016-12-23] MEDS: Isosorbide MONOnitrate (24 HR) 30 MG TAB.ER.24H PO SCH (08:41)
[2016-12-23] MEDS: Aspirin 81 MG TAB.CHEW PO SCH (08:41)
--- NOTE | 2016-12-23 09:08 | ECHO - Doppler Report ---
Echocardiogram Name: Sam Handy Date of Study: 12/22/2016 Date: 1935 Ht: 70.0 in Medical Record#: [id number] Age: 81 Wt: 200.0 lb Gender: Male BSA: 2.09 Order #: [id number] [facility] Room #: IC8 Reading Physician: Penny De León DO Billet Checker: Liana Bueno [facility] Ordering Physician: Jen Mittal MD, [facility] Primary Physician: Christopher Bradley DO Indications: STEMI, Aortic Valve Replacement Impressions: LVEF 55%. Normal left ventricular size and systolic function. Not all LV wall segments were well visualized. There is evidence of mild diastolic dysfunction of the left ventricle. Normal right ventricular size and function. Biologic aortic valve is not well visualized. Doppler evaluation suggests normal gradients. There is trivial aortic regurgitation. No pulmonary hypertension. Left Ventricular Wall Motion: Rest Echo Findings The mid anterior septal, mid inferior lateral, basal anterior septal and basal inferior lateral lópez were not visualized. All other wall segments showed normal motion. Findings: Study Quality * Technically sub-optimal due to body habitus. Poor PLAX images. ECG Findings * Normal sinus rhythm. Aortic Valve * Aortic valve not well visualized. * Trace aortic regurgitation. * Bioprosthetic valve is suboptimally visualized. Normal gradients by Doppler. Mitral Valve * No mitral regurgitation. * Mildly calcified mitral valve leaflets. * No mitral stenosis. Tricuspid Valve * Tricuspid valve not well visualized. * Trace tricuspid regurgitation. Pulmonic Valve * Pulmonic valve is not well visualized. * No pulmonic stenosis. * No pulmonic regurgitation. Pulmonary Artery * Pulmonary artery not well visualized. Left Ventricle * LVEF 55%. * Suboptimal PLAX images to measure LV wall thickness or size. * Mild left ventricular diastolic dysfunction. Left Atrium * Normal left atrial size. Right Atrium * Normal right atrial size. Right Ventricle * Normal right ventricular structure and function. Interatrial Septum * Interatrial septum not well evaluated. IVC * The IVC is not well evaluated. Pericardium * There is no pericardial effusion present. Aorta * Not well visualized. History Hypertension Diabetes Hypercholesteremia Family History of CAD History of CAD/PTCA Myocardial Infarction Valvular Disease Valve Replacement AV Prosthesis Biologic 06/01/2014 a Previous Echo was performed. Measurements: BP: 111/ 54 2D Normal Values IVSd: 1.03 cm 0.6 - 1.0 cm LVIDd: 5.42 cm 3.7 - 5.6 cm LVPWd: 1.03 cm 0.6 - 1.1 cm LVIDs: 3.24 cm 1.5 - 3.6 cm AO: 2.30 cm < 4.0 cm LA: 3.00 cm 2.0 - 4.0cm %FS: 40.20 cm >25 % LVOT Diam: 1.95 cm LA volume: 39 Mitral Valve Peak E:.80 m/sec Peak A:1.27 m/sec E/A Ratio:0.6 Peak E' Lat Kelechi:8.58 cm/s Peak E' Med Kelechi:6.84 cm/s E/E' Lat Ratio:9.3 E/E' Med Ratio:11.7 LVOT Peak Kelechi:1.03 m/sec Mean Kelechi:.69 m/sec Peak Grad:4.00 mmHg Mean Grad:2.33 mmHg Aortic Valve Peak Kelechi:2.62 m/sec Mean Kelechi:1.65 m/sec Peak Grad:27.00 mmHg Mean Grad:13.33 mmHg Valve Area:1.50 cm2 AI pressure Half-time: 555.00 msec Tricuspid Valve TV Regurg Peak Grad: 28.00mmHg TV Regurg Peak Kelechi: 2.64m/sec Updated by Penny De León on 12/23/2016 9:03:08 AM electronically signed on 12/23/2016 9:04:58 AM with status of Final Wall Motion Sun: 1=Normal, 2=Hypokinesis, 3=Akinesis, 4=Dyskinesis, 5=Aneurysmal, 6=Hyperkinetic, X=Not Visualized (Blank)=Missing
--- NOTE | 2016-12-23 09:23 | Cardiology Progress Note ---
Date of Encounter: 12/23/16 Time of Encounter: 09:20 Assessment and Plan (1) STEMI (ST elevation myocardial infarction) Current Visit: Yes Status: Acute Pt presented with acute anterior STEMI. Troponins 1.29, >50. LHC revealed Double vessel CAD, Successful PTCA/CITLALI to mid LAD. He had 80% 1st diagonal stenosis that was small vessel and 99% 1st marginal--small and subtotally occluded not amendable to revascularization. DAPT (ASA and Plavix) uninterrupted x 1 year. Pt verbalizes understanding. Continue BB, Statin, Imdur. Echo preserved EF 55%, mild diastolic dysfunction, bioprosthetic aortic valve not well visualized. Dopper suggests normal gradients, trivial AR. No events on tele. Transfer out of ICU today. Anticipate discharge home tomorrow. Qualifiers: Involved coronary artery: LAD coronary artery Qualified Code(s): I21.02 - ST elevation (STEMI) myocardial infarction involving left anterior descending coronary artery (2) Coronary artery disease Current Visit: Yes Status: Chronic Hx of PTCA to OM1 in 2011. Now s/p STEMI with CITLALI to mid LAD. DAPT x 1 year. Continue ASA, Plavix, Statin, BB, CRISTOBAL-I, Imdur. Qualifiers: Coronary Disease-Associated Artery/Lesion type: [place] artery [place] vs. transplanted heart: [place] heart Associated angina: with unstable angina Qualified Code(s): I25.110 - Atherosclerotic heart disease of [place] coronary artery with unstable angina pectoris (3) Hypertension Current Visit: Yes Status: Acute Pt became hypotensive overnight--90s/50s. Current BP prior to meds 102/67. Pt denies dizziness or lightheadedness. Will decrease Coreg to 3.125mg BID and decrease Lisinopril to 2.5mg daily. Continue to monitor. Qualifiers: Hypertension type: essential hypertension Qualified Code(s): I10 - Essential (primary) hypertension (4) Diabetes mellitus Current Visit: Yes Status: Chronic Sliding scale while inpt. Qualifiers: Diabetes mellitus type: type 2 Diabetes mellitus complication status: with unspecified complications Diabetes mellitus supervisor intermediates insulin use: without nursing home use Qualified Code(s): E11.8 - Type 2 diabetes mellitus with unspecified complications (5) Hyperlipidemia Current Visit: No Status: Chronic Statin therapy. Qualifiers: Hyperlipidemia type: unspecified Qualified Code(s): E78.5 - Hyperlipidemia , unspecified (6) S/P aortic valve replacement with bioprosthetic valve Current Visit: No Status: Chronic AVR at [facility] in 2011. Echo shows preserved EF 55%, mild diastolic dysfunction, bioprosthetic aortic valve not well visualized. Dopper suggests normal gradients, trivial AR. Discussion w patient/family: The assessment and plan as outlined above was discussed with the patient and/or family members who expressed understanding and agreement. All questions were answered. Thank you for involving us in the care of your patient. Please call with any questions. I will discuss all the above with Dr. Shah and make changes as necessary. Subjective Principal diagnosis: Anterior STEMI Interval history: Pt denies any chest pain or dyspnea overnight, reports feeling well this AM. No acute complaints. Pt was hypotensive overnight, lowest systolic BP 90. He denies any dizziness or lightheadedness. Echo shows preserved EF 55%, mild diastolic dysfunction, bioprosthetic aortic valve not well visualized. Dopper suggests normal gradients, trivial AR. Objective Vital Signs, Last 4 Hours Temp Pulse Resp BP Pulse Ox 12/23/16 09:00 71 14 122/58 95 12/23/16 08:00 82 16 111/63 95 12/23/16 07:50 71 12/23/16 07:30 97.5 F L 12/23/16 07:00 71 16 102/67 93 L 12/23/16 06:00 78 12 117/57 93 L Vital Signs Temp Pulse Resp BP Pulse Ox 12/23/16 09:00 71 14 122/58 95 12/23/16 08:00 82 16 111/63 95 12/23/16 07:50 71 12/23/16 07:30 97.5 F L 12/23/16 07:00 71 16 102/67 93 L 12/23/16 06:00 78 12 117/57 93 L 12/23/16 05:00 80 18 134/60 97 12/23/16 04:00 98.2 F 62 16 98/48 92 L 12/23/16 03:00 58 12 104/55 90 L 12/23/16 02:00 77 12 100/50 90 L 12/23/16 01:00 54 16 90/54 93 L 12/23/16 00:00 98.0 F 86 12 111/55 92 L 12/22/16 23:00 76 18 94/54 90 L 12/22/16 22:00 73 12 112/62 93 L 12/22/16 21:00 64 14 116/53 91 L 12/22/16 20:02 98.9 F 12/22/16 20:00 66 16 109/57 95 12/22/16 19:00 64 16 123/74 94 L 12/22/16 18:00 75 16 111/54 93 L 12/22/16 17:00 84 16 122/72 93 L 12/22/16 16:00 61 16 124/64 96 12/22/16 15:56 98.0 F 12/22/16 15:00 60 14 118/54 97 12/22/16 14:00 62 16 105/53 95 12/22/16 13:00 60 14 114/55 94 L 12/22/16 12:00 69 14 139/67 95 12/22/16 11:00 69 16 108/58 97 12/22/16 10:00 63 14 120/55 98 Intake and Output 12/22/16 12/23/16 12/23/16 23:59 07:59 15:59 Intake Total 240 / 240 240 / 240 Output Total 150 / 150 Balance 240 / 240 90 / 90 Intake: Oral 240 / 240 240 / 240 Output: Urine 150 / 150 Other: Meal Breakfast Percent of Meal Consumed 100% Blood Glucose* 133 General: Conversant, No Apparent Distress HEENT: Atraumatic, Normocephaly, Mucus Membranes Moist Neck: No JVD, Normal carotid pulses Cardiac: Reg Rate and Rhythm, Normal S1 and S2, Other (2/6 LB) Lungs: Normal Breath Sounds, No Wheeze, Rales, Rhonchi Neuro: Alert and responsive, No focal deficits noted Abdomen: Soft, Non-Tender Skin: No rashes noted on visualized skin Musculoskeletal: No Chest Wall Tenderness Extremities: No Clubbing, No Cyanosis, No Edema, Normal Pulses Results 12/22/16 06:04 12/22/16 06:04 Active Medications Acetaminophen (Tylenol) 500 mg PO Q6HR PRN PRN Reason: Mild Pain Stop: 06/22/17 20:21 Aspirin (Aspirin) 81 mg PO DAILY [facility]A Stop: 06/23/17 09:01 Last Admin: 12/23/16 08:41 Dose: 81 mg Atorvastatin Calcium (Lipitor) 80 mg PO HS [facility] Stop: 06/22/17 21:01 Last Admin: 12/22/16 20:32 Dose: 80 mg Carvedilol (Coreg) 3.125 mg PO BIDWM LAURA PRN Reason: Protocol Stop: 06/24/17 08:10 Clopidogrel Bisulfate (Plavix) 75 mg PO DAILY [facility] Stop: 06/23/17 09:01 Last Admin: 12/23/16 08:41 Dose: 75 mg Dextrose/Water (Dextrose 50% (Syg)) 25 ml IVP AD PRN PRN Reason: Hypoglycemia Stop: 06/22/17 20:39 Glucagon (Glucagen) 1 mg IM ONCE PRN PRN Reason: Hypoglycemia Stop: 06/22/17 20:39 Glucose (Gluctose) 15 gm PO ONCE PRN PRN Reason: Hypoglycemia Stop: 06/22/17 20:39 Glucose (Gluctose) 30 gm PO ONCE PRN PRN Reason: Hypoglycemia Stop: 06/22/17 20:39 Dextrose (Dextrose 5%) 1,000 mls @ 100 mls/hr IV CONT PRN PRN Reason: HYPOGLYCEMIA Stop: 06/22/17 20:39 Insulin Human Lispro (Humalog) 0 units SQ TIDAC [facility] PRN Reason: Protocol Stop: 06/23/17 07:31 Last Admin: 12/23/16 07:44 Dose: Not Given Isosorbide Mononitrate (Imdur) 30 mg PO DAILY [facility] Stop: 06/23/17 09:01 Last Admin: 12/23/16 08:41 Dose: 30 mg Lisinopril (Zestril) 2.5 mg PO DAILY [facility] PRN Reason: Protocol Stop: 06/23/17 09:01 Last Admin: 12/23/16 08:41 Dose: 2.5 mg Nitroglycerin (Nitroglycerin) 0.4 mg SL Q5MIN PRN PRN Reason: Chest Pain Stop: 06/22/17 19:06 Last Admin: 12/22/16 04:47 Dose: 0.4 mg Ondansetron HCl (Zofran) 4 mg IVP Q8HR PRN PRN Reason: Nausea And Vomiting Stop: 06/22/17 20:21 Last Admin: 12/22/16 05:13 Dose: 4 mg - Imaging and Cardiology Echo: report reviewed (preserved EF 55%, mild diastolic dysfunction, bioprosthetic aortic valve not well visualized. Dopper suggests normal gradients , trivial AR.) - EKG Interpretation EKG results cardiology: other (12 hour tele AVG HR 69, SR, no significant pauses or arrhythmias) - VTE Reasons for not Prescribing Prophylaxis: Not indicated-Anticoagulated or INR therapeutic Consult Discharge Plan - Plan Referrals: Tyron Bradley DO [Primary Care Provider] -
[2016-12-23 09:38] LABS: Basophils % 0.4 %; Eosinophils # 0.2 K/mcL (0.0-0.6); Eosinophils % 2.7 %; Hematocrit 35.9 % (37.5-50.1); Hemoglobin 11.9 g/dL (12.9-16.9); Immature Granulocytes % 0.1 % (0-4); Immature Platelets 5.3 % (1.1-6.1); Lymphocytes % 13.9 %; Mean Corpuscular HGB Conc 33.1 g/dL (31.6-35.5); Mean Corpuscular Hemoglobin 29.4 pg (28.0-33.3); Mean Corpuscular Volume 88.6 fL (83.0-100.0); Mean Platelet Volume 10.4 fL (9.4-12.4); Monocytes # 0.7 K/mcL (0.0-1.3); Monocytes % 10.1 %; Platelet Count 191 K/mcL (140-400); Red Blood Count 4.05 M/mcL (4.19-5.50); Red Cell Distribution Width 13.6 % (11.5-14.5); Segmented Neutrophils % 72.8 %
[2016-12-23 10:02] LABS: Calcium 8.3 mg/dL (8.6-10.8); Potassium 4.6 mEq/L (3.5-4.5)
[2016-12-23] MEDS ORDERED: Ondansetron 4 MG/2 ML VIAL IVP PRN (17:04)
[2016-12-23] MEDS ORDERED: Nitroglycerin 0.4 MG TAB.SUBL SL PRN (17:04)
[2016-12-23] MEDS ORDERED: *HR* Dextrose 50 % in Water (Syg) 50 ML SYRINGE IVP PRN (17:04)
[2016-12-23] MEDS ORDERED: D5% in Water 1,000 ML IV PRN (17:04)
[2016-12-23] MEDS ORDERED: Dextrose Gel 15 GM PO PRN ×2 (17:04)
[2016-12-24] MEDS ORDERED: Insulin LISPRO 300 UNITS/3 ML VIAL SQ SCH (07:30)
[2016-12-24 08:11] VITALS: BP 145/68
[2016-12-24 08:45] LABS: BUN/Creatinine Ratio 13 (6-26); Blood Urea Nitrogen 17 mg/dL (8-26); Calcium 8.8 mg/dL (8.6-10.8); Carbon Dioxide 23 mEq/L (19-29); Chloride 106 mEq/L (98-109); Glucose 167 mg/dL (70-99); Osmolality,Calculated 295 (280-300); Potassium 4.8 mEq/L (3.5-4.5); Sodium 140 mEq/L (136-145); eGFR For African Americans > 60 (> 60); eGFR For Non-African Americans 53 (> 60)
[2016-12-24] MEDS ORDERED: Isosorbide MONOnitrate (24 HR) 30 MG TAB.ER.24H PO SCH (09:00)
[2016-12-24] MEDS ORDERED: Aspirin 81 MG TAB.CHEW PO SCH (09:00)
--- NOTE | 2016-12-24 09:10 | Discharge Summary ---
Date of Encounter: 12/24/16 Time of Encounter: 09:06 - Discharge Diagnosis (1) STEMI (ST elevation myocardial infarction) Priority: Primary Status: Acute Comments: Pt presented with acute anterior STEMI 12/22/16. Troponins 1.29, >50. LHC revealed Double vessel CAD, Successful PTCA/CITLALI to mid LAD. He had 80% 1st diagonal stenosis that was small vessel and 99% 1st marginal--small and subtotally occluded not amendable to revascularization. DAPT (ASA and Plavix) uninterrupted x 1 year. Pt verbalizes understanding. Continue BB, Statin, Imdur. Echo preserved EF 55%, mild diastolic dysfunction, bioprosthetic aortic valve not well visualized. Dopper suggests normal gradients, trivial AR. No events on tele. Evaluated by PT and OT--no needs. D/C to home today. Follow-up as outpt within 1 week. Qualifiers: Involved coronary artery: LAD coronary artery Qualified Code(s): I21.02 - ST elevation (STEMI) myocardial infarction involving left anterior descending coronary artery (2) Coronary artery disease Priority: Primary Status: Acute Comments: Hx of PTCA to OM1 in 2011. Now s/p STEMI with CITLALI to mid LAD. DAPT x 1 year. Continue ASA, Plavix, Statin, BB, CRISTOBAL-I, Imdur. Qualifiers: Coronary Disease-Associated Artery/Lesion type: [place] artery [place] vs. transplanted heart: [place] heart Associated angina: with unstable angina Qualified Code(s): I25.110 - Atherosclerotic heart disease of [place] coronary artery with unstable angina pectoris (3) Hypertension Priority: Secondary Status: Acute Comments: Pt became hypotensive 2 nights ago--90s/50s--was asymptomatic. Decreased Coreg to 3.125mg BID and decreased Lisinopril to 2.5mg daily. Hypotension has resolved. Systolic BP 140s this AM prior to meds. Pt instructed to keep BP log at home and bring to follow-up appointment to see if further adjustments need made. Qualifiers: Hypertension type: essential hypertension Qualified Code(s): I10 - Essential (primary) hypertension (4) Diabetes mellitus Priority: Secondary Status: Chronic Comments: Resume Metformin tomorrow. Has been held 2 days s/p [facility]. Qualifiers: Diabetes mellitus type: type 2 Diabetes mellitus complication status: with unspecified complications Diabetes mellitus longterm insulin use: without longterm use Qualified Code(s): E11.8 - Type 2 diabetes mellitus with unspecified complications (5) Hyperlipidemia Priority: Secondary Status: Chronic Comments: Continue high dose statin. Qualifiers: Hyperlipidemia type: unspecified Qualified Code(s): E78.5 - Hyperlipidemia , unspecified (6) S/P aortic valve replacement with bioprosthetic valve Priority: Secondary Status: Chronic Comments: AVR at [facility] in 2011. Echo shows preserved EF 55%, mild diastolic dysfunction, bioprosthetic aortic valve not well visualized. Dopper suggests normal gradients, trivial AR. - Discharge Medications Prescriptions: Nitroglycerin 0.4 mg SL Q5MIN PRN #30 tab.subl PRN Reason: Chest Pain Aspirin 81 mg PO DAILY #30 tab.chew Atorvastatin [Lipitor] 80 mg PO HS #30 tablet Carvedilol [Coreg] 3.125 mg PO BIDWM #60 tablet Clopidogrel [Plavix] 75 mg PO DAILY #30 tablet Isosorbide MONOnitrate (24 HR) [Imdur] 30 mg PO DAILY #30 tab.er.24h Lisinopril [Zestril] 2.5 mg PO DAILY #30 tablet Home Medications: Fluticasone Propionate Nasal [Flonase] 100 mcg NS DAILY 12/21/16 [History] Metformin HCl [Metformin HCl ER] 1,000 mg PO BID 12/21/16 [History] Omeprazole [PriLOSEC] 20 mg PO DAILY 12/21/16 [History] Aspirin 81 mg PO DAILY #30 tab.chew 12/24/16 [Rx] Atorvastatin [Lipitor] 80 mg PO HS #30 tablet 12/24/16 [Rx] Carvedilol [Coreg] 3.125 mg PO BIDWM #60 tablet 12/24/16 [Rx] Clopidogrel [Plavix] 75 mg PO DAILY #30 tablet 12/24/16 [Rx] Isosorbide MONOnitrate (24 HR) [Imdur] 30 mg PO DAILY #30 tab.er.24h 12/24/16 [ Rx] Lisinopril [Zestril] 2.5 mg PO DAILY #30 tablet 12/24/16 [Rx] Nitroglycerin 0.4 mg SL Q5MIN PRN #30 tab.subl 12/24/16 [Rx] Allergies/Adverse Reactions: Allergies No Known Allergies Allergy (Verified 12/21/16 18:53) Procedures/tests Complete & Pending: Procedures Performed prior 72 hours Category Date Time Status ECG 12 lead ECG [ECG] Routine Y 12/22/16 07:00 Ordered EV echocardiogram Routine Y 12/22/16 20:20 Completed Date of admission: 12/21/16 19:18 Primary care physician: Tyron Bradley, Consults: 12/21/16 20:20 Consult to Cardiac Rehabilitation-Phase1 [CONS] Routine Comment: Reason for Consult: AMI Call Completed: Yes Consult to Cardiac Rehabilitation-Phase1 [CONS] Routine Comment: Reason for Consult: post op cath Call Completed: Yes Consult to Nurse Navigator [CONS] Routine Comment: 12/23/16 11:49 Consult to Occupational Therapy [CONS] Routine Comment: Evaluate, develop and implement POC Consult to Physical Therapy [CONS] Routine Comment: Evaluate, develop and implement POC Discharging clinician: Edgar Wilhelm Anticipated date of discharge: 12/24/16 - Patient Status Disposition: Home, Self-Care Condition: Fair Functional capacity at discharge: independent ambulation Overall status at discharge: patient is progressing back to baseline - Discharge Instructions Follow Up With: Tyron Bradley DO [Primary Care Provider] - Additional Instructions: RISK FACTORS: STOP SMOKING: If you smoke, STOP. Smoking or tobacco use significantly increases your risk of heart disease because nicotine causes the arteries to narrow or constrict. It also causes fats to stick to the artery. Your chances of having a heart attack are greatly increased if you continue to smoke. For more information, call the education line for smoking cessation 4-912-QZGXRCF EAT A LOW FAT/CHOLESTEROL/SODIUM DIET: This diet may help reduce your chances of having a heart attack. LIFTING: Avoid lifting anything more than 10 pounds for 5-7 days Prior to straining, laughing, sneezing and/or coughing, apply manual pressure directly over insertion site. ACTIVITY: You may walk or climb stairs as tolerated You can resume sexual activity as tolerated In general, you are encouraged to engage in a minimum of 30 minutes or more of moderate intensity physical activity, such as brisk walking, daily or at least 3 -4 times weekly BATHING Do not submerge the site into water (bath tub, hot tub, swimming pool) for 1 week. This can be a source for infection into the blood stream. You may shower after 24 hours SITE CARE: After 24 hours, you may remove the dressing and leave the site open to air. Keep the site clean and dry. Clean gently and pat dry. You can expect bruising and tenderness that gradually resolve within a week or two. Return to work as instructed per your physician Resume driving as instructed per physician Keep all scheduled follow up appointments Resume medications as instructed IMPORTANT: If prescribed a Platelet Aggregation Inhibitor such as, Plavix, Brilinta or Effient: Duration of therapy is minimum one year These medications are often used in combination with Aspirin in prevention of future heart attacks Never discontinue unless consult with your [employer] STROKE (CVA) Risk factors for a stroke are: Age, cigarette smoking, diabetes, excessive alcohol consumption, family history, high blood pressure, overweight, physical inactivity, prior stroke, heart attack, diagnosis of carotid artery stenosis or other artery disease. Warning signs: Sudden numbness or weakness of the face, arm or leg; especially on one side of the body, sudden confusion, trouble speaking or understanding, sudden trouble seeing in one or both eyes, sudden trouble walking, dizziness, loss of balance or coordination, sudden severe headache with no cause. Call 911 or go to the Emergency Room. CONGESTIVE HEART FAILURE: If you have been diagnosed with Congestive Heart Failure (CHF) and your symptoms return, make an appointment with your physician Weigh yourself daily. Notify your physician if you have a weight gain of two or more pounds in one day or five or more pounds in one week. If you experience any difficulty breathing, please call 911 BLEEDING: Although the risk of bleeding is minimal, it can happen. If you have any bleeding from the site, apply firm pressure above the puncture site for 10-15 minutes. If the bleeding does not stop, continue manual pressure and call 911 Contact your physician if: You develop a fever greater than 101 degrees Fahrenheit Your site becomes reddened or has any drainage You have an increase in pain or burning at the site or if a large knot forms at the site. If you experience chest pain, shortness of breath, dizziness, or extreme tiredness, stop the activity and rest. Please notify your physicians office if you experience any of these symptoms and they are not relieved by rest please call 911! - Diet and Activity Activity: increase activity as tolerated Diet: low fat, low cholesterol, low salt diet - Hospital Course Hospital course: Mr. Handy is a 81 year old male with PMH of HTN, HLD, CAD, Bioprosthetic AVR that presented with acute anterior STEMI 12/22/16. Troponins 1.29, >50. LHC revealed Double vessel CAD, Successful PTCA/CITLALI to mid LAD. He had 80% 1st diagonal stenosis that was small vessel and 99% 1st marginal--small and subtotally occluded not amendable to revascularization. DAPT (ASA and Plavix) uninterrupted x 1 year. Pt verbalizes understanding. Continue BB, Statin, Imdur. BB and CRISTOBAL-I were decreased due to hypotension, which has now resolved. Resume Metformin tomorrow for DM--has been held 2 days s/p [facility]. Echo preserved EF 55%, mild diastolic dysfunction, bioprosthetic aortic valve not well visualized. Dopper suggests normal gradients, trivial AR. No events on tele. Evaluated by PT and OT--no needs. D/C to home today. - Time Spent with Patient Total time spent providing and/or coordinating discharge services: 30 minutes Physical Examination Vital Signs, Last 4 Hours Temp Pulse Resp BP Pulse Ox 12/24/16 08:00 76 14 145/68 96 12/24/16 07:55 98.0 F 12/24/16 07:24 54 Vital Signs Temp Pulse Resp BP Pulse Ox 12/24/16 08:00 76 14 145/68 96 12/24/16 07:55 98.0 F 12/24/16 07:24 54 12/24/16 04:00 97.9 F 80 16 129/59 97 12/24/16 00:04 98.2 F 12/24/16 00:00 69 12/23/16 20:00 69 18 138/71 95 12/23/16 19:26 98.2 F 12/23/16 15:38 78 12/23/16 15:30 98.0 F 12/23/16 15:00 78 16 147/60 97 12/23/16 11:41 64 12/23/16 11:20 97.8 F 12/23/16 11:00 64 16 114/56 95 12/23/16 10:00 57 14 104/57 92 L Intake and Output 12/23/16 12/24/16 12/24/16 23:59 07:59 15:59 Intake Total 240 / 240 Output Total 250 / 250 825 / 825 Balance - -825 / -825 Intake: Oral 240 / 240 Output: Urine 250 / 250 825 / 825 Other: Weight 91 kg Blood Glucose* 122 Patient Weight 12/24/16 23:59 Weight 91 kg General: Conversant HEENT: Atraumatic, Normocephaly, Mucus Membranes Moist Neck: No JVD, Normal carotid pulses Cardiac: Reg Rate and Rhythm, Normal S1 and S2, No Murmur Lungs: Normal Breath Sounds, No Wheeze, Rales, Rhonchi Neuro: Alert and responsive, No focal deficits noted Abdomen: Soft, Non-Tender Skin: No rashes noted on visualized skin Musculoskeletal: No Chest Wall Tenderness Extremities: No Clubbing, No Cyanosis, No Edema, Normal Pulses - VTE Reasons for not Prescribing Prophylaxis: Not indicated-Anticoagulated or INR therapeutic
== END 2016-12-24 10:14 | disposition home or self-care (01) | DRG 247 ==
LOC: EMEROO 18:48 → ICNU 19:18
PROVIDERS: ADMIT Internal Medicine Interventional Cardiology; ATTEND Internal Medicine Interventional Cardiology